=== PATIENT | male | born 1975 | race American Indian/Alaskan Native ===

== ENCOUNTER 2016-07-03 22:48 | Emergency (ER) | payer SELFPAY ==
[2016-07-04 00:33] VITALS: BP 148/97
[2016-07-04] MEDS ORDERED: PERCOCET 5/325 PO ONE (01:14)
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
--- NOTE | 2016-07-04 01:36 | XRay Report ---
FINAL REPORT PROCEDURE: XR HUMERUS 1V LT TECHNIQUE: LEFT humerus radiographs, AP and lateral views. HISTORY: pain LT HUMERUS COMPARISON: No prior studies are available for comparison. FINDINGS: Fracture (s) and/or Dislocation(s): None . Joint space(s): Normal. Soft tissues: Normal. Bone mineralization: Normal. Foreign bodies: None. IMPRESSION: Normal Examination.
--- NOTE | 2016-07-04 01:37 | XRay Report ---
FINAL REPORT PROCEDURE: XR FOREARM LT TECHNIQUE: LEFT forearm radiographs, AP and lateral views. CPT 24954 HISTORY: injury LT FOREARM PAIN COMPARISON: No prior studies are available for comparison. FINDINGS: Fracture (s) and/or Dislocation(s): None . Joint space(s): Normal . Soft tissues: Normal . Bone mineralization: Normal . Foreign bodies: None . IMPRESSION: There is no evidence of an acute fracture or dislocation of the left forearm.
--- NOTE | 2016-07-04 01:38 | XRay Report ---
FINAL REPORT PROCEDURE: XR ELBOW 3 LT TECHNIQUE: LEFT elbow radiographs, including AP, lateral, and oblique views. CPT 97946 HISTORY: injury LT ELBOW PAIN COMPARISON: No prior studies are available for comparison. FINDINGS: Fracture (s) and/or Dislocation(s): None . Alignment: Normal . Joint space(s): Normal . Soft tissues: Normal . Bone mineralization: Normal . Foreign bodies: None . IMPRESSION: Normal Examination
== END 2016-07-04 03:02 | disposition home or self-care (01) ==
LOC: ED 22:48
DX: S50.02XA Contusion of left elbow, initial encounter (principal); M25.512 Pain in left shoulder; M79.602 Pain in left arm; Z79.1 Long term (current) use of non-steroidal anti-inflammatories (NSAID); W51.XXXA Accidental striking against or bumped into by another person, initial encounter; Y93.89 Activity, other specified; Y99.8 Other external cause status; Y92.009 Unspecified place in unspecified non-institutional (private) residence as the place of occurrence of the external cause

== ENCOUNTER 2020-10-02 11:10 | Emergency (ER) | payer OTHER ==
[2020-10-02 11:48] VITALS: BP 165/95
--- NOTE | 2020-10-02 12:00 | Event Note ---
ED Screening Note ED Screening Note: Laceration to the left hand that occurred around 10 AM this morning He states he cut it against a AC unit Bleeding is controlled with gauze in place He denies any pain in the hand just pain where the cut is He has full range of motion of the hand He is unsure of her last tetanus immunization This initial assessment/diagnostic orders/clinical plan/treatment(s) is/are subject to change based on patients health status, clinical progression and re- assessment by fellow clinical providers in the ED. Further treatment and workup at subsequent clinical providers discretion. Patient/guardian urged not to elope from the ED as their condition may be serious if not clinically assessed and managed. Initial orders include: ACC for wound care/repair
[2020-10-02] MEDS ORDERED: LIDOCAINE 2%/EPINEPHRINE 1:200,000 VIAL (20 ML) INFILTRATI ONE (13:25)
[2020-10-02] MEDS ORDERED: TETANUS,DIPH,PERTUSS(ACELL) VACCINE 0.5 ML SYRINGE IM ONE (13:25)
--- NOTE | 2020-10-02 14:07 | Emergency Department Report ---
ED Laceration HPI - HPI Chief Complaint: Wound/Laceration Stated Complaint: LAC TO HAND Time Seen by Provider: 10/02/20 11:59 Occurred When: Today Location: Upper Extremity Severity: mild Tetanus Status: Not up to Date Laceration Symptoms: Yes Pain, No Foreign Body Sensation, No Numbness, No Weakness Other History: This is a 44-year-old male nontoxic, well nourished in appearance, no acute signs of distress presents to the ED with c/o of left wrist laceration that occurred prior to arrival today. Patient stated he was installing AC unit which caused a laceration. Patient denies decreased sensation or range of motion. Patient stated bleeding is under control. Denies any numbness, tingling, fever, chills, nausea, vomiting, chest pain, shortness of breath, headache or stiff neck. Patient denies any allergies to significant past medical history. Patient is that he is not up-to-date with tetanus. ED Review of Systems ROS: Stated complaint: LAC TO HAND Other details as noted in HPI Comment: All other systems reviewed and negative Constitutional: denies: chills, fever Eyes: denies: eye pain, eye discharge, vision change ENT: denies: ear pain, throat pain Respiratory: denies: cough, shortness of breath, wheezing Cardiovascular: denies: chest pain, palpitations Endocrine: no symptoms reported Gastrointestinal: denies: abdominal pain, nausea, diarrhea Genitourinary: denies: urgency, dysuria Musculoskeletal: denies: back pain, joint swelling, arthralgia Skin: denies: rash, lesions Neurological: denies: headache, weakness, paresthesias Psychiatric: denies: anxiety, depression Hematological/Lymphatic: denies: easy bleeding, easy bruising ED Past Medical Hx - Past Medical History Previous Medical History?: No - Surgical History Past Surgical History?: No - Social History Smoking Status: Current Some Day Smoker Substance Use Type: Alcohol - Medications Home Medications: Home Medications Medication Instructions Recorded Confirmed Last Taken Type Diclofenac Sodium 75 mg PO BID #20 tablet. 07/04/16 Unknown Rx traMADoL [Ultram] 50 mg PO Q6HR PRN #12 tablet 07/04/16 Unknown Rx Acetaminophen/Codeine [Tylenol 1 tab PO Q6H PRN #12 tab 10/02/20 Unknown Rx /Codeine # 3 tab] Sulfamethoxazole/Trimethoprim 1 each PO BID #14 tablet 10/02/20 Unknown Rx [Bactrim DS TAB] Laceration Physical Exam - Exam General: Vital signs noted. No distress. Alert and acting appropriately. Wound Length (cm): 4 (left wrist) Laceration Location: Upper Extremity Laceration Exam: Yes Normal Distal CMS, No Foreign Body, No Exposed Tendon, Ve ssel, or Nerve, No Tendon Injury ED Course Vital Signs 10/02/20 11:46 Temperature 98.1 F Pulse Rate 92 H Respiratory 22 Rate Blood Pressure 165/95 [Right] O2 Sat by Pulse 98 Oximetry - Reevaluation(s) Reevaluation #1: 10/02/20 14:03 Patient is speaking in full sentences with no signs of distress noted. - Laceration /Wound Repair Left Hand Wound Location: upper extremity (Left hand) Wound Length (cm): 4 Wound's Depth, Shape: flap Wound Explored: clean Irrigated w/ Saline (ccs): 40 Betadine Prep?: Yes Anesthesia: Lidocaine w/ Epi Volume Anesthetic (ccs): 6 Wound Repaired With: sutures Suture Size/Type: 4:0, proline Number of Sutures: 14 Deep Layer Suture Size/Type: 3:0 (Vicryl) Number Deep Layer Sutures: 4 Sterile Dressing Applied?: Yes Progress: Under sterile field, I used Betadine to clean the area. I then used 40 mL of normal saline to flush the area. I then used 2% lidocaine with epi 1-200,000 and injected 6 mL to the wound. I then used a 3-0 Vicryl for deeper dermis with total of 4 stitches placed. I then used a 4-0 Prolene to suture the laceration. Number of stitches 14. I then applied a sterile 4 x 4 with tape. Minimal bleeding noted but is under control. Patient tolerated procedure well with no signs of distress. ED Medical Decision Making - Radiology Data [facility] [address] [place] [address] XRay Report Signed Patient: ARCENIO DESOUZA MR#: [id number] : 1975 Acct:[id number] Age/Sex: 44 / M ADM Date: 10/02/20 Loc: ED Attending Dr: Ordering Physician: ALMAS HILLIARD NP Date of Service: 10/02/20 Procedure(s): XR hand 3+V LT Accession Number(s): [id number] cc: ALMAS HILLIARD NP Fluoro Time In Minutes: LEFT HAND 3 VIEW(S) INDICATION / CLINICAL INFORMATION: left wrist lac COMPARISON: Forearm radiograph 07/04/2016 FINDINGS: BONES / JOINT(S): No acute fracture or subluxation. Mild-moderate degenerative changes at the thumb CMC joint. Mildly prominent with osteophyte at the ring finger metacarpal head. Doubtful clinical significance. SOFT TISSUES: Soft tissue irregularity at the ulnar and possibly the radial aspects of the wrist likely representing a laceration. ADDITIONAL FINDINGS: None. Signer Name: Nichole rutherford MD Signed: 10/02/2020 2:25 PM Workstation Name: [id number] Transcribed By: Dictated By: NICHOLE STEIN III Electronically Authenticated By: NICHOLE STEIN III Signed Date/Time: 10/02/201424 DD/ 22 TD/TT: - Medical Decision Making This is a 44-year-old male that presents with laceration. Patient is stable and was examined by me. The laceration suturing has been performed and has been performed and patient tolerated well. A sterile dressing has been applied. Patient was educated on proper wound care. Patient is discharged with Bactrim and Tylenol with codeine and was instructed not to operate any machinery while taking Tylenol with codeine due to drowsiness. Patient was instructed to return in 10 days for suture removal. Patient was instructed to refer to Follow-up with a primary care doctor in 3-5 days or if symptoms worsen and continue return to emergency room as soon as possible. At time of discharge, the patient does not seem toxic or ill in appearance. No acute signs of distress noted. Patient agrees to discharge treatment plan of care. No further questions noted by the patient. Critical care attestation.: If time is entered above; I have spent that time in minutes in the direct care of this critically ill patient, excluding procedure time. ED Disposition Clinical Impression: Laceration of right hand Qualifiers: Encounter type: initial encounter Foreign body presence: without foreign body Qualified Code(s): S61.411A - Laceration without foreign body of right hand, initial encounter Disposition: - TO HOME OR SELFCARE Is pt being admited?: No Does the pt Need Aspirin: No Condition: Stable Instructions: Laceration Care, Adult, [id number] Additional Instructions: Follow-up with a primary care doctor in 3-5 days or if symptoms worsen and continue return to emergency room as soon as possible. Return in 10 days for suture removal. Do not operate any machinery while taking Tylenol with codeine as this may cause drowsiness. Prescriptions: Sulfamethoxazole/Trimethoprim [Bactrim DS TAB] 1 each PO BID #14 tablet Acetaminophen/Codeine [Tylenol /Codeine # 3 tab] 1 tab PO Q6H PRN #12 tab PRN Reason: Pain , Severe (7-10) Referrals: PRIMARY CAREMD [Primary Care Provider] - 3-5 Days CHACORTA DAILEY MD [Staff Physician] - 3-5 Days Forms: Work/School Release Form(ED) Time of Disposition: 16:38
--- NOTE | 2020-10-02 14:29 | XRay Report ---
LEFT HAND 3 VIEW(S) INDICATION / CLINICAL INFORMATION: left wrist lac COMPARISON: Forearm radiograph 07/04/2016 FINDINGS: BONES / JOINT(S): No acute fracture or subluxation. Mild-moderate degenerative changes at the thumb C MC joint. Mildly prominent with osteophyte at the ring finger metacarpal head. Doubtful clinical sign ificance. SOFT TISSUES: Soft tissue irregularity at the ulnar and possibly the radial aspects of the wrist like ly representing a laceration. ADDITIONAL FINDINGS: None. Signer Name: Javon Wylie MD Signed: 10/02/2020 2:25 PM Workstation Name: [id number]
== END 2020-10-02 16:55 | disposition home or self-care (01) ==
LOC: ED 11:10
DX: S61.411A Laceration without foreign body of right hand, initial encounter (principal); F17.200 Nicotine dependence, unspecified, uncomplicated; Z79.899 Other long term (current) drug therapy; X58.XXXA Exposure to other specified factors, initial encounter; Y93.89 Activity, other specified; Y92.89 Other specified places as the place of occurrence of the external cause; Y99.8 Other external cause status
CPT/HCPCS: 90471; 90715

== ENCOUNTER 2020-10-13 10:12 | Emergency (ER) | payer OTHER ==
--- NOTE | 2020-10-13 11:36 | Emergency Department Report ---
Suture/Staple Removal - [facility] Chief Complaint: Wound/Laceration Stated Complaint: SUTURE REMOVAL Time Seen by Provider: 10/13/20 11:20 When Sutures or Devin Placed: 11-14 Days Ago Wound Location: Left hand ED Review of Systems ROS: Stated complaint: SUTURE REMOVAL Other details as noted in HPI Comment: All other systems reviewed and negative Skin: other (laceration left hand ) ED Past Medical Hx - Past Medical History Previous Medical History?: No - Surgical History Past Surgical History?: No - Social History Smoking Status: Current Some Day Smoker Substance Use Type: Alcohol - Medications Home Medications: Home Medications Medication Instructions Recorded Confirmed Last Taken Type Diclofenac Sodium 75 mg PO BID #20 tablet. 07/04/16 Unknown Rx traMADoL [Ultram] 50 mg PO Q6HR PRN #12 tablet 07/04/16 Unknown Rx Acetaminophen/Codeine [Tylenol 1 tab PO Q6H PRN #12 tab 10/02/20 Unknown Rx /Codeine # 3 tab] Sulfamethoxazole/Trimethoprim 1 each PO BID #14 tablet 10/02/20 Unknown Rx [Bactrim DS TAB] Suture Removal Exam - Exam General: Vital signs noted. No distress. Alert and acting appropriately. Wound: No Pathologic Erythema, No Tenderness, No Drainage, No Pus, No Wound Dehiscence Other Systems: All other systems reviewed and are unremarkable. ED Course Vital Signs 10/13/20 11:16 Temperature 98.6 F Pulse Rate 88 Respiratory 16 Rate Blood Pressure 185/97 O2 Sat by Pulse 99 Oximetry - Procedure Description Procedures done: Suture removal: Left hand. All sutures removed. Patient tolerated well without any complications. No signs of infection or wound dehiscence noted. Critical care attestation.: If time is entered above; I have spent that time in minutes in the direct care of this critically ill patient, excluding procedure time. ED Disposition Clinical Impression: Visit for suture removal Disposition: DC-01 TO HOME OR SELFCARE Is pt being admited?: No Does the pt Need Aspirin: No Condition: Stable Instructions: Wound Closure Removal, Care After Additional Instructions: Continue to keep wound clean daily with soap and water. Dry well, apply thin layer of neosporin and cover. Do this daily for another week. Follow up with PCP. Return to ED if worse. Referrals: PRIMARY CARE, [Primary Care Provider] - 3-5 Days Time of Disposition: 11:36
== END 2020-10-13 19:00 | disposition home or self-care (01) ==
LOC: ED 10:12